=== PATIENT | female | born 1945 | race African-American/Black ===

== ENCOUNTER → 2017-12-09 | Outpatient (CLI) | payer BC | END | disposition home or self-care (01) | LOC: KCIC MAMMO 16:59 | DX: Z12.31 Encounter for screening mammogram for malignant neoplasm of breast (principal) | CPT/HCPCS: 77067 ==

== ENCOUNTER → 2019-02-27 | Outpatient (CLI) | payer BC ==
[2018-10-30 12:32] VITALS: BP 123/60
[~2019-02-27] MED LIST: AMLO10TA8 PO; CINA30TA2 PO; SITA100T PO; SPIR25TA5 PO; VALS320T2 PO
--- NOTE | 2019-02-27 16:41 | KCIC ---
Examination: RENAL COMPLETE BILATERAL History: Kidney stone. Follow-up. Comparison/Correlation: None Findings: Right kidney measures 11 cm x 7.30 5.2 cm. Left kidney measures 10.3 cm x 5.3 cm x 4.6 cm. Moderate right hydronephrosis is present. There is a 1.9 cm diameter calculus in the right ureteropelvic junction. Renal contours and echotexture are within normal limits. No left hydronephrosis. No left renal calculus identified. Normal bilateral ureteral jets identified in the urinary bladder. Urinary bladder is mostly decompressed. Impression: Right hydronephrosis due to obstructive calculus at the right ureteropelvic junction. Electronically signed by: Gerald Kilgore MD (02/27/2019 4:38 PM) [facility]
== END | disposition home or self-care (01) ==
LOC: KCIC US 15:38
PROVIDERS: ATTEND Internal Medicine Nephrology
DX: N13.2 Hydronephrosis with renal and ureteral calculous obstruction (principal); N18.3 Chronic kidney disease, stage 3 (moderate); Z87.442 Personal history of urinary calculi
CPT/HCPCS: 76770

== ENCOUNTER → 2019-03-11 | Outpatient (CLI) | payer BC ==
[2018-10-30 12:32] VITALS: BP 123/60
--- NOTE | 2019-03-11 16:58 | KCIC ---
Bilateral digital screening mammograms: Reason for examination: Routine screening. Comparison is made to previous studies dated 12/09/2017 and 04/28/2014. Interpretation was made with the benefit of CAD. The skin and nipples show no abnormalities. No abnormal axillary lymph nodes are seen. The breast parenchyma is extremely dense. (Breast density: Category D.) There are no dominant masses, suspicious calcifications or architectural distortion. Impression: No evidence of malignancy. Recommend routine screening. Your patient's mammogram demonstrates that she has dense breast tissue (breast density category C or D), which could hide abnormalities, and if she has other risk factors for breast cancer that have been identified, she might benefit from supplemental screening tests that may be suggested by you as her ordering physician. Dense breast tissue, in and of itself, is a relatively common condition. Therefore, this information is not provided to cause undue concern, but rather to raise your awareness and to promote discussion with your patient regarding the presence of other risk factors, in addition to dense breast tissue. Your patient's mammography results will be sent to her. BI-RAD Category 1: Negative. "Our facility is accredited by the [employer] Mammography [employer]." This patient's information has been entered into a reminder system for the patient to be notified with the results of her examination and a target date for the next mammogram. Electronically signed by: Delores Damian MD (03/11/2019 4:55 PM) [id number]
== END | disposition home or self-care (01) ==
LOC: KCIC MAMMO 15:57
PROVIDERS: ATTEND Family Medicine
DX: Z12.31 Encounter for screening mammogram for malignant neoplasm of breast (principal)
CPT/HCPCS: 77067